=== PATIENT | female | born 1935 | race Caucasian/White ===

== ENCOUNTER 2017-02-18 11:24 | Emergency (ER) | payer MEDICARE ==
--- NOTE | 2017-02-18 12:59 | RAD ---
INDICATION: Left supraorbital hematoma. COMPARISON: None TECHNIQUE: Noncontrast axial source images were acquired from the skull base to the vertex. FINDINGS: Ventricles/sulci: There is cortical atrophy with compensatory dilatation of the CSF spaces. Brain parenchyma: There is periventricular and subcortical white matter change compatible with chronic ischemia. Intracranial hemorrhage:None. Extra-axial spaces: There are no abnormal extra axial fluid collections or evidence of extra-axial mass. Calvarium: There is no calvarial fracture or other calvarial abnormality. Scalp: There are several large left supraorbital hematomas.. Please refer also to forthcoming CT maxillofacial CT report Paranasal sinuses/mastoid: The paranasal sinuses and mastoid air cells are clear. Other: None. IMPRESSION: No acute intrarenal findings. Left supraorbital hematomas as described on the maxillofacial CT.
--- NOTE | 2017-02-18 13:13 | RAD ---
Indication: Neck and facial injury. CT of the cervical spine was obtained in the axial plane. Sagittal and coronal reconstructed images were obtained. The mastoid air cells are well aerated. No evidence of air-fluid levels are noted. No fractures identified. The C1 ring is intact. There is no fracture noted. Degenerative changes of the atlantoaxial joint is noted. The vertebral bodies appear normal in height. No fracture is noted. Disc space narrowing at C3-C4 is noted. Spondylitic ridge is noted. No central foraminal stenosis is noted. At C4-C5 spondylitic ridge flattens the thecal sac. No foraminal stenosis is noted. At C5-C6 spondylitic ridge with facet hypertrophy is noted. There may be right foraminal stenosis. The left foramen appears patent. At C6-C7 spondylitic ridge flattens the thecal sac. No central or foraminal stenosis is noted. At C7-T1 the disc space appears normal. IMPRESSION: No fracture of the cervical spine is noted. Degenerative disc disease at C3-C4, C4-C5, C5-C6 and C6-C7 is noted.
--- NOTE | 2017-02-18 13:14 | RAD ---
Indication: Fall, chest pain. Single view of the chest and shape no mediastinal shift. Cardiomegaly is noted. Interstitial prominence is noted. This is unchanged from April 11, 2015. IMPRESSION: Cardiomegaly with likely chronic interstitial disease.
--- NOTE | 2017-02-18 13:18 | RAD ---
INDICATION: Fall with facial trauma. COMPARISON: Head CT of the same date. TECHNIQUE: Multidetector CT base of the skull through mandible without contrast. Multiplanar reformation. REPORT: LEFT supraorbital scalp hematoma measuring up to 1.8 cm AP by 3.7 cm transverse by 3.3 cm cephalocaudal. Extensive surrounding soft tissue edema including at the preseptal region of the LEFT eye and extending over the bridge of the nose and malar eminence. Negative for post septal edema or hematoma at the LEFT orbit. The ocular globes are symmetric. The orbital and maxillary sinus margins, zygomatic arches, lamina papyracea, base of the maxilla, pterygoid plates, and nasal bones are intact. The senile morphology mandible is intact. Normal temporal mandibular joint alignment. 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 Clear paranasal sinuses and mastoid air spaces. IMPRESSION: 1. Negative for maxillofacial fracture. 2. LEFT supraorbital scalp hematoma measuring up to 1.8 cm AP by 3.7 cm transverse by 3.3 cm cephalocaudal. Extensive surrounding soft tissue edema including at the preseptal region of the LEFT eye and extending over the bridge of the nose and malar eminence.
[2017-02-18] MEDS ORDERED: Acetaminophen TAB* 325 MG PO ONE (13:24)
[2017-02-18] MEDS ORDERED: NS 0.9% 1000 ML* 1,000 ML IV ONE (13:25)
[2017-02-18] MEDS ORDERED: Tetan/Diph/Pertus SYR(Tdap)* 0.5 ML SYR(BOOSTRIX) use SYR IM ONE (13:27)
[2017-02-18 13:37] LABS: Urine Bacteria 1+ (Absent); Urine Bilirubin Negative (Negative); Urine Glucose Negative (Negative); Urine Nitrite Negative (Negative)
[2017-02-18 14:27] LABS: Hematocrit 39 % (35-47); Hemoglobin 12.8 g/dl (12.0-16.0); Mean Corpuscular HGB Conc 33 g/dl (31-36); Mean Corpuscular Hemoglobin 31 pg (27-31); Mean Corpuscular Volume 95 fL (80-97); Mean Platelet Volume 10 um3 (7.4-10.4); Red Cell Distribution Width 14 % (10.5-15)
[2017-02-18 14:32] LABS: Comments Flag Yes
[2017-02-18 14:33] LABS: Add Diff/Slide Review? Slide Review Added
[2017-02-18] MEDS ORDERED: Diltiazem IV* 5 MG/ML 5 ML VIAL (for loading dose/IV Push) (25 MG) IV SLOW PU ONE (14:39)
[2017-02-18 14:46] LABS: BUN/Creatinine Ratio 24.6 (8-20); Calcium 9.4 mg/dL (8.6-10.3); EGFR African American 130.9 (>60); EGFR Non-African American 101.8 (>60); Potassium 3.4 mmol/L (3.5-5.0); Total Bilirubin 0.8 mg/dL (0.2-1.0); Troponin I 0.01 ng/mL (<0.04)
[2017-02-18 14:53] LABS: TSH (Thyroid Stimulating Horm) 1.48 mcIU/mL (0.34-5.60)
[2017-02-18 18:04] VITALS: BP 129/78
--- NOTE | 2017-02-19 16:03 | ED ---
Kierra Segovia Auryana, scribed for Matt Vargas MD on 02/18/17 at 1250 . Head Injury - HPI Summary HPI Summary: 81 year old female EZEQUIEL s/p fall and head injury at 08:30 PM last night. Patient reports that she was walking and tripped. Patient reports that she has pain at the left eye where she hit her head and also has a PELLETIER. She denies any neck pain, nausea, vomiting, or any other pain. Patient reports that she is able to ambulate. She denies any LOC or any possible syncope. She is unsure of her last tetanus shot. PMHx is significant for HTN, atrial fibrillation - Eliquis anticoagulant, and GERD. - History Of Current Complaint Chief Complaint: EDHeadInjury Stated Complaint: FALL HEAD INJURY Time Seen by Provider: 02/18/17 12:29 Hx Obtained From: Patient, Family/Director Of Patient Safety Hx Last Menstrual Period: n/a Mechanism Of Injury: Fall From A Standing Position Onset/Duration: Started Days Ago - yesterday at 08:30 PM, Still Present Severity Currently: Mild Severity Initially: Mild Pain Intensity: 2 Pain Scale Used: 0-10 Numeric Location of Head Injury: Frontal - left sided Associated Signs And Symptoms: Bruising, Headache - at the site of injury Anticoagulant Therapy: Blood Thinners - Allergies/Home Medications Allergies/Adverse Reactions: Allergies Allergy/AdvReac Type Severity Reaction Status Date / Time No Known Allergies Allergy Verified 02/29/16 06:48 PMH/Surg Hx/FS Hx/Imm Hx Cardiovascular History: Reports: Hx Hypertension, Other Cardiovascular Problems/ Disorders - A-FIB Musculoskeletal History: 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 APPENDECTOMY- 1956 Hx Anesthesia Reactions: No Infectious Disease History: No Infectious Disease History: Denies: Traveled Outside the [place] in Last 30 Days - Family History Known Family History: Positive: Other - breast CA - negative for clotting disorders - Social History Alcohol Use: Daily Alcohol Amount: 2 GLASSES OF WINE A DAY Substance Use Type: Reports: Prescribed Substance Use Comment - Amount & Last Used: HYDROCODONE TWICE A DAY- 1/2 TAB Smoking Status (MU): Never Smoked Tobacco Have You Smoked in the Last Year: No Review of Systems Constitutional: Negative Negative: Fever Eyes: Negative ENT: Negative Cardiovascular: Negative Respiratory: Negative Gastrointestinal: Negative Genitourinary: Negative Musculoskeletal: Negative Positive: Other - hematoma and swelling of the left side of the head/forehead Positive: Headache Psychological: Normal All Other Systems Reviewed And Are Negative: Yes Physical Exam - Summary Physical Exam Summary: VITAL SIGNS: Reviewed. GENERAL: Patient is a elderly female who is lying comfortable in the stretcher. Patient is not in any acute respiratory distress. HEAD AND FACE: No signs of trauma. No ecchymosis, hematomas or skull depressions. No sinus tenderness. No racoon eyes. No flag signs. EYES: PERRLA, EOMI x 2, No injected conjunctiva, no nystagmus. EARS: Hearing grossly intact. Ear canals and tympanic membranes are within normal limits. No hemotympanum. MOUTH: Oropharynx within normal limits. NECK: Supple, trachea is midline, no adenopathy, no JVD, no carotid bruit, no c- spine tenderness, neck with full ROM. CHEST: Symmetric, no tenderness at palpation LUNGS: Clear to auscultation bilaterally. No wheezing or crackles. CVS: Regular rate and rhythm, S1 and S2 present, no murmurs or gallops appreciated. ABDOMEN: Soft, non-tender. No signs of distention. No rebound no guarding, and no masses palpated. Bowel sounds are normal. EXTREMITIES: FROM in all major joints, no edema, no cyanosis or clubbing. NEURO: Alert and oriented x 3. No acute neurological deficits. Speech is normal and follows commands. SKIN: Dry and warm. Facial abrasion at the left eyebrow with swelling and a hematoma. Triage Information Reviewed: Yes Vital Signs On Initial Exam: Initial Vitals Temp Pulse Resp BP Pulse Ox 99.0 F 76 20 160/65 97 02/18/17 11:25 02/18/17 11:25 02/18/17 11:25 02/18/17 11:25 02/18/17 11:25 Vital Signs Reviewed: Yes - [place] Coma Scale Coma Scale Total: 15 Diagnostics - Vital Signs Vital Signs Temp Pulse Resp BP Pulse Ox 02/18/17 12:18 98.6 F 116 16 157/101 96 02/18/17 11:25 99.0 F 76 20 160/65 97 - Laboratory Result Diagrams: 02/18/17 13:57 02/18/17 13:57 Lab Statement: Any lab studies that have been ordered have been reviewed, and results considered in the medical decision making process. - Radiology CXR Xray Interpretation: Positive (See Comments) - IMPRESSION: Cardiomegaly with likely chronic interstitial disease. Radiology Interpretation Completed By: Radiologist - CT BRAIN CT Interpretation: Positive (See Comments) - IMPRESSION: No acute intrarenal findings. Left supraorbital hematomas as described on the maxillofacial CT. CT Interpretation Completed By: Radiologist CERVICAL SPINE CT Interpretation: Positive (See Comments) - IMPRESSION: No fracture of the cervical spine is noted. Degenerative disc disease at C3-C4, C4-C5, C5-C6 and C6 -C7 is noted. CT Interpretation Completed By: Radiologist MAXILLOFACIAL CT Interpretation: Positive (See Comments) - IMPRESSION: 1. Negative for maxillofacial fracture. 2. LEFT supraorbital scalp hematoma measuring up to 1.8 cm AP by 3.7 cm transverse by 3.3 cm cephalocaudal. Extensive surrounding soft tissue edema including at the preseptal region of the LEFT eye and extending over the bridge of the nose and malar eminence. CT Interpretation Completed By: Radiologist - EKG 12:38 EKG Interpretation: ATRIAL FIBRILLATION WITH RVR, no ST elevation Head Injury Course/Dx Assessment/Plan: 81 year old female BIBA s/p fall and head injury at 08:30 PM last night. Patient reports that she was walking and tripped. Patient reports that she has pain at the left eye where she hit her head and also has a PELLETIER. She denies any neck pain, nausea, vomiting, or any other pain. Patient reports that she is able to ambulate. She denies any LOC or any possible syncope. She is unsure of her last tetanus shot. PMHx is significant for HTN, atrial fibrillation Eliquis anticoagulant, and GERD. Test result w/o any significant abnormalities except potassium 3.4. UA is contaminated. BRAIN CT - IMPRESSION: No acute intrarenal findings. Left supraorbital hematomas as described on the maxillofacial CT. MAXILLOFACIAL CT - IMPRESSION: 1. Negative for maxillofacial fracture. 2. LEFT supraorbital scalp hematoma measuring up to 1.8 cm AP by 3.7 cm transverse by 3.3 cm cephalocaudal. Extensive surrounding soft tissue edema including at the preseptal region of the LEFT eye and extending over the bridge of the nose and malar eminence. CERVICAL CT - IMPRESSION: No fracture of the cervical spine is noted. Degenerative disc disease at C3-C4, C4-C5, C5-C6 and C6-C7 is noted. CXR - IMPRESSION: Cardiomegaly with likely chronic interstitial disease. EKG shows atrial fibrillated at. In the ED course, the patient was given IV fluids and Cardizem 20 mg IV boluses with a range between 67-72 bpm. Patient has no other complaints. Patient is already taking Eliquis, therefore patient will be d/c home with f/u to PCP. - Diagnoses Provider Diagnoses: Head contusion, Facial contusion, Atrial fibrillation Discharge - Discharge Plan Condition: Stable Disposition: HOME Patient Education Materials: Head Injury (ED), Facial Contusion (ED), A-fib ( Atrial Fibrillation) (ED) Referrals: Kalpesh Mccray MD [Primary Care Provider] - 2 Days The documentation as recorded by the Kierra boggs Auryana accurately reflects the service I personally performed and the decisions made by Sam leigh Walter, MD.
--- NOTE | 2017-02-20 15:58 | PN ---
Progress Note - Progress Note Date of Service: 02/18/17 Note: preliminary urine results grew >100,000 klebsiella penumoniae. Was not complaining of symptoms at visit. was d/c home without treatment and diagnosis of facial contusion, head injury. will wait for final urine culture results to being treatment if symptomatic as the bacteria is not typical.
== END 2017-02-18 18:02 | disposition home or self-care (01) ==
LOC: ED 11:24
DX: S00.93XA Contusion of unspecified part of head, initial encounter (principal); W19.XXXA Unspecified fall, initial encounter; Y93.9 Activity, unspecified; Y92.9 Unspecified place or not applicable
CPT/HCPCS: 36415; 70450; 70486; 71010; 72125; 80053; 81003; 81015; 82553; 83605; 84443; 84484; 85025; 85610; 85730; 87077; 87086; 87186; 90471; 90715; 93005; 96374; 96375; 99284; A9270-GY